=== PATIENT | female | born 1985 | race Caucasian/White ===

== ENCOUNTER 2016-12-16 18:10 | Emergency (ER) | payer OTHER ==
[2016-12-16 18:29] VITALS: BMI 29.2
[2016-12-16 19:08] LABS: RBC URINE 1 /hpf (0-3); URINE BACTERIA RARE (<OCC); URINE BILIRUBIN NEGATIVE (NEGATIVE); URINE BLOOD NEGATIVE (NEGATIVE); URINE COLOR Yellow (YELLOW); URINE GLUCOSE (UA) NORMAL (Normal); URINE KETONE NEGATIVE (NEGATIVE); URINE LEUKOCYTE ESTERASE 3+ Leu/uL (Negative); URINE PROTEIN NEGATIVE (NEGATIVE); URINE UROBILINOGEN NORMAL mg/dL (0.2-1.0); WBC URINE 12 /hpf (0-5)
--- NOTE | 2016-12-16 20:06 | OBHP ---
Datetime: 12/16/2016 18:43 IP Adm Impression: , intrauterine IP Chief Complaint Other: No movement; S/P fall 2 days ago IP Admit Plan: Discharge home IP Admit Plan Other: UTI; Rh positive. Musculoskeletal pain Admit Comment, IP Provider: 30 y.o. , LMP 07/25/16, RAGINI 05/01/17, EGA 22 weeks c/o no m ovement since falling 2 days ago. Fell on her coccyx; no direct abdominal trauma - "slipped on wet fl oor at home". Onset of lower abdomnal pain, RLQ > LLQ approximately 4 hours after falling. Pain scale then 7/10, now 5/10 - took no pain meds. care: [facility]; last visit 3 weeks ago. Nex t appt 12/23/16. No issues to date. 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 Denies STIs PMH: denies PSH: denies Meds: PNV NKDA Soc Hx: denies tobacco, illicit drug or EtOH use. x 5 years. Stay at home Fam Hx: Mother and Father alive; both 75 y.o. - both, no med issues P.E.: as above. WD in NAD. Awake, alert, oriented to time, person and place. Pleasant and cooperat lisa. Assessment: 30 yo P1, 22weeks, S/P fall 2 days ago, no movement since. On EFM, heart rate an d audible movement was demonstrated to patient. Clinically stable. Plan: 1) Ob ultrasound 2) Blood type 3) U/A Addendum: 1999 Still reports no movement; Does appear slightly anxious D/W patient the folowin) OB ultrasound: AGA 23w 4d, normal amnionic fluid and grossly normal l imited anatomic findings. 2) Rh positive. 3) U/A: pH 7; S.G. 1.017; leuk esterase 3+ Assessment: IUP at 23+ weeks. Early UTI. Rh(+) - no need for rhogam. Patient counseled on p.o. ant iobiotics for UTI; and to increase p.o. intake of water, 1/2 her weight in ounces. To continue prenat al vitamins; and to keep scheduled appointments. Plan: 1) discharge home 2) Rx: nitrofurantoin 100 mg p.o. BID x 7 days Pelvic Type - PN: Adequate Extremities - PN: Normal Abdomen - PN: Normal Back - PN: Normal Breast - PN: Not Done Lungs - PN: Normal Heart - PN: Normal Thyroid - PN: Not Done Neurologic - PN: Normal HEENT - PN: Normal General - PN: Normal FHR - Baseline A Provider: 135 Contraction Comments Provider: none Comments, ACOG Physical Exam: Skin: warm, dry, intact HEENT: full ROM Lungs: CTA bilaterally Cardiac: RRR, normal S1, S2 Abdomen: Soft. Gravid, non tender; fundus 1 FB above umbilicus. Mild RLQ and suprapubic tenderness : no discharge Extremities: no calf tenderness, cyanosis or edema All other systems reviewed and are negative Gestation - Est Wks by US: 22.0 Vital Signs Provider: Reviewed NICHD Decel Fetus A IP Provider: None Dilatation, Provider: 0 Effacement, Provider: 0 Station, Provider: floating Genitourinary Exam: Normal DTRs - PN: Not Done
--- NOTE | 2016-12-17 10:21 | US ---
Pelvic ultrasound History: . Fall. Comparison: 09/07/2016 Technique: Real-time sonography was performed through the pelvis. Findings: Please note this was a limited study for viability purposes only. If there is concern for anomaly or abnormality, further evaluation with a dedicated anatomic ultrasound is recommended. Cervix measures 3.2 centimeters. Anterior placental position. Cephalic presentation. heart rate of 134 beats per minute. Mean ultrasound age of approximately 23 weeks and 5 days. Biparietal diameter measures 5.7 centimeters, head circumference measures 20.8 centimeters, abdominal circumference measures 18.8 centimeters, and femur length measures 4.5 centimeters. LMP is reported to be 07/25/2016. Estimated weight of 640 grams. Amniotic fluid volume is visually adequate. Impression: Single live intrauterine is identified with a mean ultrasound age of approximately 23 weeks and 5 days with heart rate of 134 beats per minute. Anterior placenta. Cervix is closed. Please note this was a limited study for viability purposes only. Dedicated anatomic survey at an interval date is recommended to assess for anomalies and or abnormalities. These findings were preliminarily reported at 7:46 p.m. on 12/16/[address] Angelika Santacruz from [employer].
== END 2016-12-16 19:52 | disposition home or self-care (01) ==
LOC: C.EROB 18:10
DX: O23.42 Unspecified infection of urinary tract in pregnancy, second trimester (principal); Z3A.23 23 weeks gestation of pregnancy

== ENCOUNTER 2017-04-03 21:11 | Emergency (ER) | payer OTHER | END 2017-04-03 22:35 | disposition home or self-care (01) | LOC: C.EROB 21:11 | DX: O26.893 Other specified pregnancy related conditions, third trimester (principal); R10.9 Unspecified abdominal pain; Z3A.39 39 weeks gestation of pregnancy ==

== ENCOUNTER 2017-04-04 01:53 | Inpatient (IN) | payer OTHER ==
[2017-04-04 02:02] VITALS: BMI 32.9
[2017-04-04] MEDS ORDERED: Lactated Ringer's 1,000 ML IV SCH ×2 (02:15)
[2017-04-04 02:22] LABS: BASO % 0.3 % (0.0-2.0); EOS # 0.1 K/uL (0.0-0.7); EOS % 0.4 % (0.0-4.0); HEMATOCRIT 34.4 % (34.0-47.0); LYMPH # 3.8 K/uL (1.0-4.3); LYMPH % 24.1 % (20.0-40.0); MEAN CELL VOLUME 76.2 fL (81.0-99.0); MEAN CORPUSCULAR HEMOGLOBIN 24.4 pg (27.0-31.0); MEAN CORPUSCULAR HGB CONC 32.1 g/dL (33.0-37.0); MEAN PLATELET VOLUME 9.2 fL (7.2-11.7); MONO # 0.8 K/uL (0.0-0.8); MONO % 5.3 % (0.0-10.0); RED CELL DISTRIBUTION WIDTH 18.6 % (11.5-14.5); WHITE BLOOD COUNT 15.9 K/uL (4.8-10.8)
--- NOTE | 2017-04-04 02:26 | OBADHP ---
Datetime: 04/04/2017 02:15 Admit Comment, IP Provider: 31 yo , LMP 07/25/16, revised RAGINI 04/10/17, EGA 39w 1d seen earlier, and sent home not in labor, returning becuase of increased frequency and intensity of cntractions, wi th SROM en route. (+) FM. issues: [facility], rubella and varicella non immune; anemic - not taking iron. P Ob: 10/23/14, , female, 7+ lb. 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 Denies STIs PMH: denies PSH: denies NKDA Meds: PNV - QD Soc Hx: denies tobacco, illicit drug or EtOH use. x 5 years. Stay at home mother Fam Hx: Mother and father both alive; both 74 y.o. No med issues. No known fam h/o cancer P.E.: as above. WD in pain with contractions. Awake, alert, oriented to time, person and place. Assessment: 31 yo P1, 39w 1d, SROM, active labor. GBS (-). Rubella and varicella non immune. Categ ory 1 tracing. Clinically stable. Plan: 1) ADmit 2) NPO 3) IVFs 4) Admission labs 5) Continuous EFM 6) Anticipate vaginal delivery 7) Rubella vaccine post Pelvic Type - PN: Adequate Extremities - PN: Normal Abdomen - PN: Normal Back - PN: Normal Breast - PN: Not Done Lungs - PN: Normal Heart - PN: Normal Thyroid - PN: Not Done Neurologic - PN: Normal HEENT - PN: Normal General - PN: Normal Presentation-Admit: Vertex FHR - Baseline A Provider: 125 Contraction Comments Provider: 2-4 minutes Comments, ACOG Physical Exam: Abdomen: Gravid. Firm with contractions All other systems reviewed and are negative Gestation - Est Wks by US: 39w 1d IP Hx Assessment: The History has been Reviewed and is Current Vital Signs Provider: Reviewed IP Chief Complaint: Uterine contractions; Suspected ruptured membranes NICHD Variability Prov Fetus A: Moderate 6-25bpm NICHD Accel Fetus A IP Provider: [id number] FHR Category Provider Fetus A: Category I NICHD Decel Fetus A IP Provider: None Dilatation, Provider: 8 Effacement, Provider: 80 Station, Provider: 1 Genitourinary Exam: Normal DTRs - PN: Not Done EGA AdmitDate IP: 39.1 IP Adm Impression: Term, intrauterine ; Active labor IP Admit Plan: Admit to unit; Initiate labor protocol Datetime: 04/03/2017 21:43 IP Chief Complaint Other: Abdominal pain; passed mucous plug Datetime: 12/16/2016 18:43 IP Admit Plan Other: UTI; Rh positive. Musculoskeletal pain
[2017-04-04 02:31] LABS: CHLORIDE 101 mmol/L (98-107); POTASSIUM 3.5 mmol/L (3.6-5.2); SODIUM 136 mmol/L (132-148)
[2017-04-04 02:33] LABS: AST/SGOT 24 U/L (14-36); BILIRUBIN,TOTAL 0.5 mg/dL (0.2-1.3); CARBON DIOXIDE 17 mmol/L (22-30); GFR AFRICAN-AMERICAN > 60
[2017-04-04 02:34] LABS: ALB/GLOB RATIO 0.9 (1.0-2.1); ALKALINE PHOSPHATASE 162 U/L (38-126); ALT/SGPT 23 U/L (9-52); BLOOD UREA NITROGEN 9 mg/dL (7-17); CALCIUM 9.2 mg/dl (8.6-10.4); GLUCOSE,RANDOM 95 mg/dL (65-105)
[2017-04-04] MEDS ORDERED: Lidocaine 2% Inj (20ml) ONE (02:55)
[2017-04-04] MEDS ORDERED: Measles, Mumps, and Rubella 0.5 ML VIAL SC ONE (03:15)
[2017-04-04] MEDS ORDERED: Oxycodone/Acetaminophen 5/325 mg Tab PO PRN (03:15)
[2017-04-04] MEDS ORDERED: Acetaminophen-Codeine 300/30 mg Tab PO PRN (03:15)
[2017-04-04] MEDS ORDERED: Phytonadione 1 mg/0.5 ml Inj (Neonatal) IM ONE (03:17)
[2017-04-04] MEDS ORDERED: Erythromycin 0.5% Ophth Oint 1 APPLIC/3.5 G OU ONE (03:17)
--- NOTE | 2017-04-04 03:23 | OBDS ---
DELIVERY PERSONNEL Delivery Doctor: Hari Ramirez MD Scrub Nurse: Savannah Leong Backend Developer: Luther Rodarte RN MATERNAL INFORMATION Delivery Anesthesia: None Placenta Cultured: No Maternal Complications: None Provider Comments: Uncomplicated vaginal delivery, live male infant, SHIRA position over intact perine um, Weight 6lb 5oz. 's 9/9; placed on mother's abdomen. Spontaneous delivery of placenta - grossly intact, 3 vessel cord. Cervix, vagina, perineum inspected - laceration as above; repaired as above. Infant, mother and father bonding - mother and baby in stable condition LABOR SUMMARY EDC: 04/10/2017 00:00 No. Babies in Womb: 1 Attempted: No Labor Anesthesia: None LABOR INFORMATION Reason for Induction: Not Applicable Onset of Labor: 04/03/2017 22:35 Complete Dilatation: 04/04/2017 02:40 Oxytocin: N/A Group B Beta Strep: Negative Antibiotics # of Doses: 0 Steroids Given: None Reason Steroids Not Administered: Not Applicable Other Reason Not Administered: TERM BABY MEMBRANES Membranes Rupture Method: Spontaneous Rupture of Membranes: 04/04/2017 01:40 Length of Rupture (hrs): 1.15 Amniotic Fluid Color: Clear Amniotic Fluid Amount: Moderate Amniotic Fluid Odor: Normal STAGES OF LABOR Stage 1 hrs: 4 Stage 1 min: 5 Stage 2 hrs: 0 Stage 2 min: 9 Stage 3 hrs: 0 Stage 3 min: 11 Total Time in Labor hrs: 4 Total Time in Labor min: 25 VAGINAL DELIVERY Episiotomy: None Laceration Extension: Second Degree Laceration Type: Perineal Laceration Repair: Yes Laceration Repair Note: 2-0 chromic - routine fashion. Hemostasis assured. patient tolerated procedu re well Initial Vag Sponge Count: 10+1 Final Vag Sponge Count: 10+1 Initial Vag Sharps Count: 1 Final Vag Sharps Count: 1 Sponge Count Correct: Yes; Vaginal Sweep Performed Sharps Count Correct: Yes Count Comment: ALL ACCOUNTED FOR BABY A INFORMATION Infant Delivery Date/Time: 04/04/2017 02:49 Method of Delivery: Vaginal Born in Route : No : N/A Forceps: N/A Vacuum Extraction: N/A Shoulder Dystocia : No SHOULDER DYSTOCIA BABY A Infant Delivery Date/Time: 04/04/2017 02:49 PRESENTATION/POSITION BABY A Presentation: Cephalic Cephalic Presentation: Vertex Vertex Position: Right Occipital Anterior Breech Presentation: N/A PLACENTA INFORMATION BABY A Placenta Delivery Time : 04/04/2017 03:00 Placenta Method of Delivery: Spontaneous Placenta Status: Delivered SCORES BABY A Heart Rate 1 min: >100 bpm Resp Effort 1 min: Good Cry Reflex Irritability 1 min: Cough or Sneeze or Pulls Away Muscle Tone 1 min: Active Motion Color 1 min: Body [place], Extremities Blue Resuscitation Effort 1 min: Tactile Stimulation SCORE 1 MIN: 9 Heart Rate 5 min: >100 bpm Resp Effort 5 min: Good Cry Reflex Irritability 5 min: Cough or Sneeze or Pulls Away Muscle Tone 5 min: Active Motion Color 5 min: Body [place], Extremities Blue SCORE 5 MIN: 9 INFORMATION BABY A Gestational Age at Delivery: 39.0 Gestational Status: Term Outcome : Liveborn Condition : Stable Sex: Male IDENTIFICATION/MEDS BABY A ID Band Number: [id number] ID Band Location: Left Leg; Left Arm Sensor Applied: Yes Sensor Number: [id number] Sensor Location : Cord Clamp Vitamin K Given : Not Given Erythromycin Given: Not Given WEIGHT/LENGTH BABY A Infant Birthweight (gms): 2865 Weight (lb): 6 Infant Weight (oz): 5 Length Inches: 19.50 Length cms: 49.5 CORD INFORMATION BABY A No. Cord Vessels: 3 Nuchal Cord : N/A Nuchal Cord Other: 0 Cord Blood Taken: Yes Infant Suction: None ASSESSMENT BABY A Infant Complications: None Physical Findings at Delivery: Within Normal Limits Infant Respirations: Appears Normal Veneer Clipper/ALS Called : No Infant Care By: AILIN DUBON Transferred To: [facility]
[2017-04-04 04:44] LABS: RBC URINE 2 /hpf (0-3); URINE BILIRUBIN NEGATIVE (NEGATIVE); URINE BLOOD NEGATIVE (NEGATIVE); URINE COLOR Yellow (YELLOW); URINE GLUCOSE (UA) NORMAL (Normal); URINE KETONE 1+ mg/dL (NEGATIVE); URINE LEUKOCYTE ESTERASE NEG Leu/uL (Negative); URINE PROTEIN NEGATIVE (NEGATIVE); URINE UROBILINOGEN NORMAL mg/dL (0.2-1.0); WBC URINE 1 /hpf (0-5)
[2017-04-04] MEDS ORDERED: Benzocaine/Menthol 20%-0.5% Topical Spray (60 ml) TOP SCH (06:00)
[2017-04-04] MEDS: Multiple Vitamins Tab PO SCH (10:45)
[2017-04-05] MEDS ORDERED: Hepatitis B Vaccine PED 5 mcg/0.5 mL Inj IM ONE (03:19)
[2017-04-05 08:32] LABS: HEMATOCRIT 29.6 % (34.0-47.0); MEAN CELL VOLUME 77.1 fL (81.0-99.0); MEAN CORPUSCULAR HEMOGLOBIN 24.9 pg (27.0-31.0); MEAN CORPUSCULAR HGB CONC 32.3 g/dL (33.0-37.0); MEAN PLATELET VOLUME 9.1 fL (7.2-11.7); RED CELL DISTRIBUTION WIDTH 18.4 % (11.5-14.5); WHITE BLOOD COUNT 12.5 K/uL (4.8-10.8)
[2017-04-05] MEDS: Multiple Vitamins Tab PO SCH (09:22)
[2017-04-05 09:49] VITALS: BP 110/73; PULSE 72; RESP 18; TEMP 98; O2SAT 99
--- NOTE | 2017-04-05 09:55 | OBPPN ---
Datetime: 04/05/2017 08:40 PP Pain Prov: Within normal limits PP Nausea Prov: Denies PP Flatus Prov: Yes PP BM Prov: Yes PP Breasts Prov: Normal PP Heart Prov: Normal PP Lungs Prov: Normal PP Abdomen/Uterus Prov: Normal PP Lochia Prov: Normal PP Vulva/Perineum Prov: Normal PP CVA Tenderness Prov: Normal PP Extremities Prov: Normal PP C/S Incision Prov: Normal PP Progress Prov: Normal PP Comments Phys Exam Prov: Breasts: large, symmetric; slight crack to left breast. Right breast no cracks Abdomen: soft, non distended. Fundus firm, mobile, non tender 18 weeks, Minimal lochia rubra Extremiites: no calf tenderness or edema All other systems reviewed and are negative PP Impression Prov: Normal progression PP Progress Note Prov: Patient received in bed, room 454. exclusively, reports crack n ipple on left. Denies nausea, vomiting. Ambulating and voiding without difficulty. Desires to go dionisio e today. Denies dizziness, lightheadedness, chest pain, shortness of breath, palpitations P.E.: as above. WD in NAD. Awake, alert, oriented to time, person and place. present - PPD#1 H/H 9.6/29.6. Rh(+) Assessment: PPD#1 31 yo P2, S/P with repair of perineal laceration. Afebrile, vital signs stab le. D/W patient and , she is stable to be discharged home from obstetric point of view; discha rge is pending clearance of by material control manager. Parents expressed an understanding. Rubella non immune; will advise MMR prior to discharge. Anemic - asymptomatic and hemodynamically stable. Clinica lly stable. cleared for discharge by material control manager Plan: 1) discharge home 2) see full discharge instructions Vital Signs Provider PP: Reviewed; Within Normal Limits
--- NOTE | 2017-04-05 09:57 | OBDCSUM ---
Datetime: 04/05/2017 09:54 Disch Instr Activity: Normal activity; May be up to bathroom; May be up for meals; May Shower Discharge Instructions, Provider: Routine instructions given Discharge Diagnosis, Provider: Term Delivered Discharge Time: 04/05/2017 09:54 Contraception discussed, Prov: Yes Disch Activity Restrictions: No exercising; No lifting; No sexual activity; Nothing in vagina - Inte rcourse, tampons, douche Discharge Diagnosis Prov Other: Anemic Contraception counseling Contraception after Delivery: Undecided Datetime: 04/03/2017 22:35 Discharge Time: 04/05/2017 22:36
--- NOTE | 2017-04-05 09:59 | OBPPN ---
Datetime: 04/05/2017 08:40 PP Progress Note Prov: Patient received in bed, room 454. exclusively, reports crack n ipple on left. Denies nausea, vomiting. Ambulating and voiding without difficulty. Desires to go dionisio e today. Denies dizziness, lightheadedness, chest pain, shortness of breath, palpitations P.E.: as above. WD in NAD. Awake, alert, oriented to time, person and place. present - PPD#1 H/H 9.6/29.6. Rh(+) Assessment: PPD#1 31 yo P2, S/P with repair of perineal laceration. Afebrile, vital signs stab le. D/W patient and , she is stable to be discharged home from obstetric point of view; discha rge is pending clearance of by usability architect. Parents expressed an understanding. Rubella non immune; will advise MMR prior to discharge. Anemic - asymptomatic and hemodynamically stable. Care of cracked nipple was discussed. Unsure re: contraception. Clinically stable. Infant cleared for discharge by usability architect Plan: 1) discharge home 2) see full discharge instructions
[2017-04-05] MEDS ORDERED: Measles, Mumps, and Rubella 0.5 ML VIAL SC ONE (13:30)
== END 2017-04-05 14:00 | disposition home or self-care (01) | DRG 372 ==
LOC: C.EROB 01:53 → C.4D 01:55 → C.4M 04:33
PROVIDERS: ADMIT Obstetrics & Gynecology; ATTEND Obstetrics & Gynecology
PROC: 10E0XZZ Delivery of Products of Conception, External Approach (ICD-10-PCS; principal; 2017-04-04)
PROC: 0KQM0ZZ Repair Perineum Muscle, Open Approach (ICD-10-PCS; 2017-04-04)
DX: O75.3 Other infection during labor (principal); N39.0 Urinary tract infection, site not specified; O99.02 Anemia complicating childbirth; Z37.0 Single live birth; D64.9 Anemia, unspecified; Z3A.39 39 weeks gestation of pregnancy; O70.1 Second degree perineal laceration during delivery

== ENCOUNTER 2017-11-16 16:28 | Emergency (ER) | payer SELFPAY ==
[2017-11-16 16:40] VITALS: BMI 26.6
[2017-11-16 16:43] VITALS: TEMP 98.7; O2SAT 98
[2017-11-16] MEDS ORDERED: Sodium Chloride 0.9% 1,000 ML IV ONE (17:40)
[2017-11-16] MEDS ORDERED: DiphenhydrAMINE 50 mg/ml Inj IVP STA (17:40)
[2017-11-16 17:54] LABS: BASO % 0.6 % (0.0-2.0); EOS % 0.2 % (0.0-4.0); LYMPH # 3.3 K/uL (1.0-4.3); LYMPH % 41.3 % (20.0-40.0); MEAN CELL VOLUME 80.6 fL (81.0-99.0); MEAN CORPUSCULAR HEMOGLOBIN 27.6 pg (27.0-31.0); MEAN CORPUSCULAR HGB CONC 34.2 g/dL (33.0-37.0); MEAN PLATELET VOLUME 9.5 fL (7.2-11.7); MONO # 0.5 K/uL (0.0-0.8); MONO % 6.1 % (0.0-10.0); NEUT # 4.2 K/uL (1.8-7.0); NEUT % 51.8 % (50.0-75.0); NRBC % 0.1 % (0.0-2.0); RBC 4.7 Mil/uL (3.80-5.20); RED CELL DISTRIBUTION WIDTH 13.8 % (11.5-14.5)
[2017-11-16 18:06] LABS: ALB/GLOB RATIO 1.2 (1.0-2.1); ALBUMIN 4.4 g/dL (3.5-5.0); ALT/SGPT 22 U/L (9-52); AST/SGOT 19 U/L (14-36); BLOOD UREA NITROGEN 7 mg/dL (7-17); CALCIUM 9.1 mg/dl (8.6-10.4); GFR AFRICAN-AMERICAN > 60; GFR NON-AFRICAN AMERICAN > 60; LIPASE 94 U/L (23-300)
[2017-11-16] MEDS ORDERED: DiphenhydrAMINE 50 mg/ml Inj ONE (18:09)
[2017-11-16] MEDS ORDERED: Sodium Chloride 0.9% 1,000 ML ONE (18:10)
[2017-11-16 18:11] LABS: HCG,QUALITATIVE URINE NEGATIVE (NEGATIVE)
--- NOTE | 2017-11-16 18:11 | C.PDOC ---
Time Seen by Provider: 11/16/17 17:30 Chief Complaint (Nursing): Abdominal Pain History Per: Patient, Family Onset/Duration Of Symptoms: Days (few) Current Symptoms Are (Timing): Still Present Context: Other (Emotional stress) Severity: Moderate Location Of Pain/Discomfort: Epigastric Quality Of Discomfort: Unable To Describe Associated Symptoms: Nausea, Vomiting Exacerbating Factors: Food Alleviating Factors: None Last Bowel Movement: Today Additional History Per: Prior Records Abnormal Vaginal Bleeding: No Past Medical History Reviewed: Historical Data, Nursing Documentation, Vital Signs Vital Signs: Last Vital Signs Temp 98.7 F 11/16/17 16:40 Pulse 87 11/16/17 16:40 Resp 18 11/16/17 16:40 BP 109/77 11/16/17 16:40 Pulse Ox 98 11/16/17 18:11 - Medical History PMH: No Chronic Diseases Surgical History: No Surg Hx - [facility] Procedures DELIVERY OF PRODUCTS OF CONCEPTION, EXTERNAL APPROACH (04/04/17) EPISIOTOMY (11/01/14) REPAIR PERINEUM MUSCLE, OPEN APPROACH (04/04/17) Family History: States: Unknown Family Hx - Social History Hx Alcohol Use: No Hx Substance Use: No - Immunization History Hx Tetanus Toxoid Vaccination: No Hx Influenza Vaccination: No Hx Pneumococcal Vaccination: No Review Of Systems Except As Marked, All Systems Reviewed And Found Negative. Constitutional: Negative for: Fever, Weakness Cardiovascular: Negative for: Chest Pain Respiratory: Negative for: Shortness of Breath Gastrointestinal: Positive for: Nausea, Vomiting, Abdominal Pain. Negative for : Diarrhea, Constipation, Melena, Hematochezia, Hematemesis Genitourinary: Negative for: Dysuria Musculoskeletal: Negative for: Neck Pain, Back Pain Skin: Negative for: Rash Neurological: Negative for: Weakness, Numbness, Seizures, Altered Mental Status Psych: Positive for: Anxiety, Other (Insomnia). Negative for: Suicidal ideation Physical Exam - Physical Exam Appears: Non-toxic, No Acute Distress, Other (Tearful affect) Skin: Normal Color, Warm, Dry, No Rash Head: Atraumatic, Normacephalic Eye(s): bilateral: Normal Inspection, PERRL, EOMI Neck: Normal ROM, Supple Cardiovascular: Rhythm Regular Respiratory: Normal Breath Sounds, No Accessory Muscle Use Gastrointestinal/Abdominal: Soft, No Tenderness, No Distention Back: No CVA Tenderness Extremity: Normal ROM, No Pedal Edema, No Calf Tenderness Neurological/Psych: Oriented x3, Normal Motor, Normal Sensation ED Course And Treatment - Laboratory Results Result Diagrams: 11/16/17 17:51 11/16/17 17:51 Lab Interpretation: No Acute Changes Urine POC: Negative O2 Sat by Pulse Oximetry: 98 Pulse Ox Interpretation: Normal Progress Note: Pt feels better. She declined a home weatherizing worker evaluation. She was given a referral for outpatient mental health follow up. Reassessment Condition: Improved Progress - Interventions Interventions:: Observation, Intravenous fluid - Medications Administered Intravenous: Antiemetic, Antihistamine (H-1), H-2 odell - Data Reviewed Data Reviewed: Lab, Old records - Patient Status Patient status: Mostly improved - Continuity of Care Discussed patient case with:: Patient, Family-HIPPA compliant, ED Nurse - Patient Plan Patient Plan: Discharge, F/U with PCP Disposition Counseled Patient/Family Regarding: Studies Performed, Diagnosis, Need For Followup, Rx Given - Disposition Referrals: [facility] [Outside] Disposition: HOME/ ROUTINE Disposition Time: 18:32 Condition: IMPROVED Additional Instructions: Follow up in the clinic and with outpatient mental health. Return to the ER if you develop suicidal or homicidal thoughts, worsening of symptoms or if you have any other concerns. Prescriptions: Famotidine [Pepcid] 20 mg PO BID #30 tab hydrOXYzine HCl [Atarax] 50 mg PO HS PRN #30 tab PRN Reason: Anxiety Instructions: Stress, Gastritis (DC) Forms: General Discharge Instructions - Clinical Impression Clinical Impression: Emotional stress, Nausea & vomiting
[2017-11-16 18:15] LABS: SQUAMOUS EPITHIAL 3 /hpf (0-5); URINE BACTERIA OCC (<OCC); URINE BILIRUBIN NEGATIVE (NEGATIVE); URINE BLOOD 1+ (NEGATIVE); URINE CLARITY Hazy (Clear); URINE COLOR Yellow (YELLOW); URINE GLUCOSE (UA) NORMAL (Normal); URINE LEUKOCYTE ESTERASE NEG Leu/uL (Negative); URINE PROTEIN NEGATIVE (NEGATIVE); URINE UROBILINOGEN NORMAL mg/dL (0.2-1.0)
[2017-11-16 18:25] LABS: BARBITURATES, UR NEGATIVE (NEGATIVE); BENZODIAZEPINES, UR NEGATIVE (NEGATIVE); OPIATES, UR NEGATIVE (NEGATIVE); PHENCYCLIDINE, UR NEGATIVE (NEGATIVE)
[2017-11-16 19:28] VITALS: BP 118/78; PULSE 84; RESP 16
== END 2017-11-16 19:27 | disposition home or self-care (01) ==
LOC: C.ER 16:28
DX: R11.2 Nausea with vomiting, unspecified (principal); R45.7 State of emotional shock and stress, unspecified
CPT/HCPCS: 80053; 81001; 83690; 84703; 85025; 96361; 96374; 96375; 99283; G0480; J1200; J2765; J7040

== ENCOUNTER 2018-09-25 13:10 | Emergency (ER) | payer OTHER ==
[2018-09-25 13:16] VITALS: BMI 26.4
--- NOTE | 2018-09-25 15:25 | C.PDOC ---
History Of Present Illness 32 y/o female, no pmhx, presents to the ED stating she woke up 2 days ago with right-sided neck pain. Pain is radiating up into the base of her scalp, and worsens with movement. States she cannot swallow or move her neck side to side secondary to the pain. Pain is 10/10. Patient is also complaining of a generalized headache. No fevers, chills, nausea, vomiting, cough, rhinorrhea, chest pain, or sob. Time Seen by Provider: 09/25/18 13:18 Chief Complaint (Nursing): Headache History Per: Patient History/Exam Limitations: no limitations Onset/Duration Of Symptoms: Days Current Symptoms Are (Timing): Still Present Severity: Severe Pain Scale Rating Of: 10 Quality: "Pain" Past Medical History Reviewed: Historical Data, Nursing Documentation, Vital Signs Vital Signs: Last Vital Signs Temp 98.5 F 09/25/18 13:15 Pulse 67 09/25/18 13:15 Resp 18 09/25/18 13:15 BP 109/74 09/25/18 13:15 Pulse Ox 100 09/25/18 13:15 Surgical History: No Surg Hx - [facility] Procedures DELIVERY OF PRODUCTS OF CONCEPTION, EXTERNAL APPROACH (04/04/17) EPISIOTOMY (11/01/14) REPAIR PERINEUM MUSCLE, OPEN APPROACH (04/04/17) Family History: States: Unknown Family Hx - Social History Hx Tobacco Use: No Hx Alcohol Use: No Hx Substance Use: No - Immunization History Hx Tetanus Toxoid Vaccination: No Hx Influenza Vaccination: No Hx Pneumococcal Vaccination: No Review Of Systems Except As Marked, All Systems Reviewed And Found Negative. Constitutional: Negative for: Fever, Chills ENT: Negative for: Nose Discharge, Nose Congestion, Throat Pain Cardiovascular: Negative for: Chest Pain Respiratory: Negative for: Cough, Shortness of Breath Gastrointestinal: Negative for: Nausea, Vomiting Musculoskeletal: Positive for: Neck Pain Skin: Negative for: Rash Neurological: Positive for: Headache. Negative for: Weakness, Numbness, Dizziness Physical Exam - Physical Exam Appears: Non-toxic, Other (Uncomfortable) Skin: Warm, Dry, No Rash Head: Atraumatic, Normacephalic Eye(s): bilateral: Normal Inspection, PERRL, EOMI Ear(s): Bilateral: Normal Oral Mucosa: Moist Throat: Normal, No Erythema, No Exudate Neck: Decreased ROM (secondary to pain), Supple, Other (difficulty opening jaw, secondary to pain) Chest: Symmetrical Cardiovascular: Rhythm Regular, No Murmur Respiratory: Normal Breath Sounds, No Accessory Muscle Use, No Rhonchi, No Wheezing Gastrointestinal/Abdominal: Soft, No Tenderness, No Distention Extremity: Bilateral: Atraumatic, Normal Color And Temperature Neurological/Psych: Oriented x3, Normal Speech, Normal Cranial Nerves ED Course And Treatment - Laboratory Results Result Diagrams: 09/25/18 16:00 09/25/18 16:00 Urine POC: Negative O2 Sat by Pulse Oximetry: 100 (RA) Pulse Ox Interpretation: Normal - CT Scan/US CTA Head/Neck Other Rad Studies (CT/US): Radiology Report Reviewed CT/US Interpretation: Accession No. : [id number]. Patient Name / ID : ELI ESCOBAR / [id number]. Exam Date : 09/25/2018 17:35:57 ( Approved ). Study Comment : Sex / Age : F / 32Y. Creator : Grover Kirkpatrick. Dictator : Gerhard Khan MD. Database Marketing Analyst : Financial Services Associate : Gerhard Khan MD. Approver2 : Report Date : 09/25/2018 17:42:11. My Comment : . Date of service: 09/25/2018. PROCEDURE: CT Angiography of the Brain. HISTORY: pain to posterior heat. COMPARISON: Unenhanced head CT 06/25/2019. TECHNIQUE: CT angiography of the head and neck was performed following intravenous contrast administration. Coronal and sagittal maximum intensity projection reformatted images were generated. Contrast Dose: Visipaque 320, 100 cc. Radiation dose: Total exam DLP = 463.29 mGy-cm. This CT exam was performed using one or more of the following dose reduction techniques: Automated exposure control, adjustment of the mA and/or kV according to patient size, and/or use of iterative reconstruction technique. FINDINGS: INTERNAL CEREBRAL ARTERIES: Unremarkable. The skull base, petrous, cavernous and supraclinoid segments are bilaterally widely patent. ANTERIOR CEREBRAL ARTERIES: Unremarkable. A1 and A2 segments are widely patent. Smaller distal branches unremarkable, as visualized. MIDDLE CEREBRAL ARTERIES: Unremarkable. M1 and M2 segments are widely patent. Perisy lvian branches grossly symmetric. POSTERIOR CIRCULATION: Basilar Artery: Unremarkable. Distal Vertebral Arteries: Unremarkable. Posterior Cerebral Arteries: Unremarkable. Posterior Inferior Cerebellar Arteries: Unremarkable. NECK CTA: Common Carotid arteries: The bilateral common carotid appear widely patent from their origins to their bifurcations with no significant stenosis appreciated. No evidence to suggest common carotid artery dissection. Internal Carotid arteries: No significant stenosis is appreciated throughout the cervical internal carotid artery segments bilaterally and there is no evidence of dissection either. External Carotid arteries: Appear unremarkable bilaterally. Vertebral arteries: The bilateral vertebral arteries appear normal in caliber from their origins to their distal cervical segments. No significant stenosis or definite pattern of dissection. ANEURYSM/ VASCULAR MALFORMATIONS: None. OTHER FINDINGS: None. IMPRESSION: Unremarkable CT Angiography of the Brain and Neck. CT Head Other Rad Studies (CT/US): Radiology Report Reviewed CT/US Interpretation: Accession No. : [id number]. Patient Name / ID : ELI ESCOBAR / [id number]. Exam Date : 09/25/2018 17:33:09 ( Approved ). Study Comment : Sex / Age : F / 32Y. Creator : Grover Kirkpatrick. Dictator : Gerhard Khan MD. Database Marketing Analyst : Financial Services Associate : Gerhard Khan MD. Approver2 : Report Date : 09/25/2018 17:42:17. My Comment : . Date of service: 09/25/2018. PROCEDURE: CT HEAD WITHOUT CONTRAST. HISTORY: HEADACHE. COMPARISON: None available. TECHNIQUE: Axial computed tomography images were obtained through the head/brain without intravenous contrast. Radiation dose: Total exam DLP = 1191.64 mGy-cm. This CT exam was performed using one or more of the following dose reduction techniques: Automated exposure control, adjustment of the mA and/or kV according to patient size, and/or use of iterative reconstruction technique. FINDINGS: HEMORRHAGE: No intracranial hemorrhage. BRAIN: Normal nichole-white matter differentiation and density are appreciated throughout the cerebrum and cerebellum with the brainstem appearing unremarkable as well. There is no mass effect. There is no suspicious extra-axial fluid collection and the midline brain anatomy appears diffusely unremarkable. VENTRICLES: Unremarkable. No hydrocephalus. CALVARIUM: Unremarkable. PARANASAL SINUSES: Unremarkable as visualized. No s ignificant inflammatory changes. MASTOID AIR CELLS: Unremarkable as visualized. No inflammatory changes. OTHER FINDINGS: None. IMPRESSION: Normal CT of the Head. Medical Decision Making Medical Decision Making: Initial Plan: --Valium 5 mg PO --Tylenol 975 mg PO Progress/Updates: Patient observed in the ED and continues to have 10/10 pain. Will rule out dissection. Pending: --CMP --CBC --PTT/PT --CTA Head/Neck Labs reviewed. 18:15 On re-evaluation patient reports feeling better. She remains AAOx3, in no acute distress. Imaging results discussed, patient reported with copies of reports. Patient will be discharged home. Advised to follow up with PMD for further evaluation. Disposition Counseled Patient/Family Regarding: Diagnosis, Need For Followup, Rx Given - Disposition Disposition: HOME/ ROUTINE Disposition Time: 18:21 Condition: STABLE Additional Instructions: Do not drive under the influence of Valium. Prescriptions: diaZEpam [Valium] 5 mg PO TID #12 tab Ibuprofen [Motrin] 600 mg PO TID #15 tab Instructions: Muscle Strain (DC) Forms: [facility] ([place]), General Discharge Instructions, Work Excuse - POA Present On Arrival: None - Clinical Impression Clinical Impression: Headache, Muscle strain - Scribe Statement The provider has reviewed the documentation as recorded by the Flori Nair Provider Attestation: All medical record entries made by the Scribe were at my direction and personally dictated by me. I have reviewed the chart and agree that the record accurately reflects my personal performance of the history, physical exam, medical decision making, and the department course for this patient. I have also personally directed, reviewed, and agree with the discharge instructions and disposition.
[2018-09-25 16:13] LABS: BASO % 0.3 % (0.0-2.0); EOS % 0.2 % (0.0-4.0); HEMOGLOBIN 11.9 g/dL (11.0-16.0); LYMPH # 2.7 K/uL (1.0-4.3); MEAN CELL VOLUME 80.7 fL (81.0-99.0); MEAN CORPUSCULAR HEMOGLOBIN 26.5 pg (27.0-31.0); MEAN CORPUSCULAR HGB CONC 32.8 g/dL (33.0-37.0); MEAN PLATELET VOLUME 8.6 fL (7.2-11.7); MONO # 0.6 K/uL (0.0-0.8); MONO % 6.5 % (0.0-10.0); NEUT # 5.8 K/uL (1.8-7.0); RBC 4.49 Mil/uL (3.80-5.20); RED CELL DISTRIBUTION WIDTH 16.4 % (11.5-14.5); WHITE BLOOD COUNT 9.2 K/uL (4.8-10.8)
[2018-09-25 16:22] LABS: INR 1.2; PROTHROMBIN TIME 13.2 SECONDS (9.7-12.2)
[2018-09-25 16:38] LABS: ALB/GLOB RATIO 1.2 (1.0-2.1); ALBUMIN 4.1 g/dL (3.5-5.0); ALT/SGPT 15 U/L (9-52); AST/SGOT 22 U/L (14-36); BLOOD UREA NITROGEN 11 mg/dL (7-17); CALCIUM 8.8 mg/dl (8.6-10.4); GFR NON-AFRICAN AMERICAN > 60
[2018-09-25] MEDS ORDERED: Iodixanol 320 MG/ML 100 ML BOTTLE IV ONE ×2 (16:49→17:14)
--- NOTE | 2018-09-25 17:56 | CT ---
Date of service: 09/25/2018 PROCEDURE: CT Angiography of the Brain. HISTORY: pain to posterior heat COMPARISON: Unenhanced head CT 06/25/2019. TECHNIQUE: CT angiography of the head and neck was performed following intravenous contrast administration. Coronal and sagittal maximum intensity projection reformatted images were generated. Contrast Dose: Visipaque 320, 100 cc Radiation dose: Total exam DLP = 463.29 mGy-cm. This CT exam was performed using one or more of the following dose reduction techniques: Automated exposure control, adjustment of the mA and/or kV according to patient size, and/or use of iterative reconstruction technique. FINDINGS: INTERNAL CEREBRAL ARTERIES: Unremarkable. The skull base, petrous, cavernous and supraclinoid segments are bilaterally widely patent. ANTERIOR CEREBRAL ARTERIES: Unremarkable. A1 and A2 segments are widely patent. Smaller distal branches unremarkable, as visualized. MIDDLE CEREBRAL ARTERIES: Unremarkable. M1 and M2 segments are widely patent. Perisylvian branches grossly symmetric. POSTERIOR CIRCULATION: Basilar Artery: Unremarkable. Distal Vertebral Arteries: Unremarkable. Posterior Cerebral Arteries: Unremarkable. Posterior Inferior Cerebellar Arteries: Unremarkable. NECK CTA: Common Carotid arteries: The bilateral common carotid appear widely patent from their origins to their bifurcations with no significant stenosis appreciated. No evidence to suggest common carotid artery dissection. Internal Carotid arteries: No significant stenosis is appreciated throughout the cervical internal carotid artery segments bilaterally and there is no evidence of dissection either. External Carotid arteries: Appear unremarkable bilaterally. Vertebral arteries: The bilateral vertebral arteries appear normal in caliber from their origins to their distal cervical segments. No significant stenosis or definite pattern of dissection. ANEURYSM/ VASCULAR MALFORMATIONS: None. OTHER FINDINGS: None. IMPRESSION: Unremarkable CT Angiography of the Brain and Neck.
--- NOTE | 2018-09-25 17:56 | CT ---
Date of service: 09/25/2018 PROCEDURE: CT HEAD WITHOUT CONTRAST. HISTORY: HEADACHE COMPARISON: None available. TECHNIQUE: Axial computed tomography images were obtained through the head/brain without intravenous contrast. Radiation dose: Total exam DLP = 1191.64 mGy-cm. This CT exam was performed using one or more of the following dose reduction techniques: Automated exposure control, adjustment of the mA and/or kV according to patient size, and/or use of iterative reconstruction technique. FINDINGS: HEMORRHAGE: No intracranial hemorrhage. BRAIN: Normal nichole-white matter differentiation and density are appreciated throughout the cerebrum and cerebellum with the brainstem appearing unremarkable as well. There is no mass effect. There is no suspicious extra-axial fluid collection and the midline brain anatomy appears diffusely unremarkable. VENTRICLES: Unremarkable. No hydrocephalus. CALVARIUM: Unremarkable. PARANASAL SINUSES: Unremarkable as visualized. No significant inflammatory changes. MASTOID AIR CELLS: Unremarkable as visualized. No inflammatory changes. OTHER FINDINGS: None. IMPRESSION: Normal CT of the Head.
[2018-09-25 18:29] VITALS: BP 106/68; PULSE 71; RESP 16; TEMP 97.8; O2SAT 98
== END 2018-09-25 18:28 | disposition home or self-care (01) ==
LOC: C.ER 13:10
DX: R51 Headache (principal); T14.8XXA Other injury of unspecified body region, initial encounter; X58.XXXA Exposure to other specified factors, initial encounter
CPT/HCPCS: 70450; 70496; 70498; 80053; 81025; 85025; 85610; 85730; 99284; Q9967

== ENCOUNTER 2018-09-29 15:55 | Emergency (ER) | payer OTHER ==
[2018-09-29 15:55] VITALS: BMI 26.4
[2018-09-29 16:08] VITALS: O2SAT 98
--- NOTE | 2018-09-29 16:52 | C.PDOC ---
History Of Present Illness 32 y/o female who presents with diffuse alllergic skin reaction. She mentions having a CT scan with IV contrast on Friday and denies ever having IV contrast before. She states that she didn't notice an immediate reaction but noticed a rash on the left forearm which progressed to abdomen, torso, back, and bilateral groin. She admits itching but denies pain or drainage. She denies any new lotions, soaps, or perfumes. She denies any food allergies. She denies any N/V/D, chest pain, and SOB. She has taken Zrytec x 2 without much relief. In addition, she mentions noticing left nipple drainage yesterday. She states that it is clear and nontender. She denies any pain, fever, and chills. LMP was 3 weeks ago. Time Seen by Provider: 09/29/18 16:24 Chief Complaint (Nursing): Abnormal Skin Integrity History Per: Patient History/Exam Limitations: no limitations Onset/Duration Of Symptoms: Gradual (since yesterday ) Current Symptoms Are (Timing): Still Present Location Of Injury: Right: Abdomen, Arm, Thigh, Left: Abdomen, Arm, Thigh, Anterior: Abdomen, Arm, Thigh, Posterior: Back Quality Of Symptoms: Itching Severity: Mild Recent travel outside of the [place]: No Past Medical History Reviewed: Historical Data, Nursing Documentation, Vital Signs Vital Signs: Last Vital Signs Temp 98.4 F 09/29/18 16:02 Pulse 78 09/29/18 16:02 Resp 17 09/29/18 16:02 BP 110/75 09/29/18 16:02 Pulse Ox 98 09/29/18 16:02 - Medical History PMH: No Chronic Diseases Surgical History: No Surg Hx - [facility] Procedures DELIVERY OF PRODUCTS OF CONCEPTION, EXTERNAL APPROACH (04/04/17) EPISIOTOMY (11/01/14) REPAIR PERINEUM MUSCLE, OPEN APPROACH (04/04/17) Family History: States: Unknown Family Hx - Social History Hx Tobacco Use: No Hx Alcohol Use: No Hx Substance Use: No - Immunization History Hx Tetanus Toxoid Vaccination: No Hx Influenza Vaccination: No Hx Pneumococcal Vaccination: No Review Of Systems Constitutional: Negative for: Fever, Chills, Sweats, Weakness Cardiovascular: Negative for: Chest Pain Respiratory: Negative for: Cough, Shortness of Breath Gastrointestinal: Negative for: Nausea, Vomiting, Abdominal Pain, Diarrhea Genitourinary: Negative for: Dysuria Musculoskeletal: Negative for: Neck Pain, Hand Pain Skin: Positive for: Rash, Other (itching) Neurological: Negative for: Weakness Physical Exam - Physical Exam Appears: Well, Non-toxic, No Acute Distress Skin: Warm, Dry, Rash (diffuse mainly involving the abdomen, under b/l breasts, back, b/l arms, and b/l groin) Head: Atraumatic, Normacephalic, No Tenderness Eye(s): bilateral: Normal Inspection, PERRL Ear(s): Bilateral: Normal (TM intact, nonerythematous) Nose: Normal (patent nares bilaterally) Oral Mucosa: Moist Tongue: No Swelling Throat: Normal, No Erythema, No Exudate Neck: Normal, Normal ROM, Supple Lymphatic: No Adenopathy Chest: Symmetrical, No Deformity, No Tenderness, Other (clear drainage expressed from nipple, no mass palpated ) Cardiovascular: Rhythm Regular Respiratory: Normal Breath Sounds, No Wheezing Gastrointestinal/Abdominal: Normal Exam, Bowel Sounds, Soft, No Tenderness Back: No CVA Tenderness Extremity: Normal ROM, No Tenderness Extremity: Bilateral: Atraumatic Neurological/Psych: Oriented x3, Normal Speech, Normal Cognition, Normal Sensation ED Course And Treatment O2 Sat by Pulse Oximetry: 98 Medical Decision Making Medical Decision Making: A/P: 1. Allergic Dermatitis possibly due to IV contrast (delayed) - given Benadryl 25mg, Pepcid 20mg, and Pred 60mg stat today - continue Benadryl and Pepcid at home - start Medrol Dose PACK - follow up with PCP if symptoms persist or worsen 2. Nipple Drainage (clear, likely benign) - Negative Urine Preg test - recommend follow up with AUTOMOTIVE SERVICES MANAGER Patient verbalized understanding Disposition Counseled Patient/Family Regarding: Diagnosis, Need For Followup, Rx Given - Disposition Referrals: [facility] [Outside] [facility] [Outside] Disposition: HOME/ ROUTINE Disposition Time: 18:17 Condition: IMPROVED Additional Instructions: SHAWN BENITEZ, thank you for letting us take care of you today. Your provider was Mick Price/Emily Lynch PA-C and you were treated for RASH ON BODY. The emergency medical care you received today was directed at your acute symptoms. If you were prescribed any medication, please fill it and take as directed. It may take several days for your symptoms to resolve. Return to the Emergency Department if your symptoms worsen, do not improve, or if you have any other problems. Please contact your doctor or call one of the physicians/clinics you have been referred to that are listed on the Patient Visit Information form that is included in your discharge packet. Bring any paperwork you were given at discharge with you along with any medications you are taking to your follow up visit. Our treatment cannot replace ongoing medical care by a primary care provider outside of the emergency department. Follow up with AUTOMOTIVE SERVICES MANAGER if clear nipple discharge continues. Thank you for allowing the [facility] team to be part of your care today. Prescriptions: DiphenhydrAMINE [Benadryl] 25 mg PO BID PRN #30 cap PRN Reason: Itching / Pruritus Famotidine [Pepcid] 20 mg PO DAILY #10 tab Methylprednisolone [Medrol Dose Pack (21 tabs)] 4 mg PO DAILY #21 mg Instructions: Contact Dermatitis (DC), Common Breast Problems Forms: [employer] ([place]i) - Clinical Impression Clinical Impression: Drug induced allergic contact dermatitis, Discharge from nipple - PA / GLOVE SEWER / Resident Statement MD/DO has reviewed & agrees with the documentation as recorded.
[2018-09-29 18:14] VITALS: BP 105/63; PULSE 69; RESP 18; TEMP 98.6
== END 2018-09-29 18:21 | disposition home or self-care (01) ==
LOC: C.ER 15:55
DX: L23.89 Allergic contact dermatitis due to other agents (principal); N64.52 Nipple discharge